=== PATIENT | male | born 1965 | race Caucasian/White ===

== ENCOUNTER → 2022-05-17 | Outpatient (CLI) | payer OTHER ==
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
== END | disposition home or self-care (01) ==
LOC: RADMRIMAIN 08:01
PROVIDERS: ATTEND Family Medicine
DX: R42 Dizziness and giddiness (principal); Z87.891 Personal history of nicotine dependence
CPT/HCPCS: 70250

== ENCOUNTER 2023-09-19 06:36 | Day surgery (SDC) | payer OTHER ==
[2023-09-17 18:42] VITALS: BMI 31.4
[2023-09-19 07:11] VITALS: RESP 16; TEMP 97
[2023-09-19] MEDS: LACTATED RINGERS 1,000 ML IV SCH (07:18)
[2023-09-19] MEDS ORDERED: PROPOFOL 10 MG/ML 20 ML VIAL IV ONE (07:20)
[2023-09-19] MEDS ORDERED: LIDOCAINE 1% INJ 10MG/ML (20 ML MDV) ONE (07:20)
--- NOTE | 2023-09-19 07:51 | P.PCN ---
Date of Procedure: 09/19/23 Procedure(s) Performed: Brief history: Patient is a pleasant 58-year-old white malescheduled for an elective upper endoscopy as well as colonoscopy as a part of evaluation of GERD and screening for colon cancer Procedure performed: Esophagogastroduodenoscopy Colonoscopywith snare polypectomy Preoperative diagnosis: GERD Screening for colon cancer Anesthesia: MAC Procedure: After informed consent was obtained from the patient was brought into the endoscopy unit and IV sedation was administered by anesthesia under continuous monitoring. Initially upper endoscopy was done. The Olympus GF 160 video endoscope was inserted inserted into the mouth and esophagus intubated without any difficulty and was gradually advanced into the stomach and duodenum and carefully examined. The bulb and second part of the duodenum appeared normal. The scope was then withdrawn into the stomach adequately insufflated with air and upon careful examination the antrum and body, cardia and fundus appeared normal. The scope was then withdrawn into the esophagus. The GE junction was located at 40 cm to the incisors. It appeared regular with 1 superficial erosion consistent with LA grade a reflux esophagitis. Rest of the esophagus appeared normal. Patient tolerated the procedure well. At this time the patient continued to remain sedation. Initial digital rectal examination was normal. Olympus CF 160 video colonoscope was then inserted into the rectum and gradually advanced to the cecum without any difficulty. Careful examination was performed as the scope was gradually being withdrawn. The prep was fair. In the base of the cecum there was a 1.2 cm broad-based polyp removed by snare polypectomy. Rest of the. The cecum, ascending colon, transverse colon, descending colon, sigmoid colon and rectum appeared normal. Retroflexion was performed in the rectum and no lesions were noted. Patient tolerated the procedure well. Impression: 1. Upper endoscopy revealed LA grade A reflux esophagitis 2. Colonoscopy revealed 1.2 cm cecal polyp status post snare polypectomy Recommendations: Findings of this examination were discussed with the patient as well ashis family. He was advised to follow with the biopsy results. If the biopsies adenoma he can have a repeat colonoscopy in 3 years.
[2023-09-19 08:26] VITALS: BP 126/78; PULSE 66
== END 2023-09-19 08:26 | disposition home or self-care (01) ==
LOC: ORWHC2ENDO 06:36
PROVIDERS: ATTEND Internal Medicine Gastroenterology
DX: Z12.11 Encounter for screening for malignant neoplasm of colon (principal); D12.0 Benign neoplasm of cecum; K21.00 Gastro-esophageal reflux disease with esophagitis, without bleeding
CPT/HCPCS: 88305; 45385; 43235; J2001; J2704; 43239